=== PATIENT | male | born 1935 | race African-American/Black ===

== ENCOUNTER 2020-04-30 08:45 | Inpatient (IN) | payer MEDICARE, OTHER ==
[~2020-04-30] VITALS: Ht 167.6 cm; Wt 56.6 kg
[2020-04-30] VITALS (10 sets, daily range): BP systolic 118–157; BP diastolic 59–89
[~2020-04-30 08:45] MED LIST: AMLO-258 PO; ASPI-1111 PO; ATOR40TA28 PO; FAMO20 PO; FLUT16H NASAL; FOLI1TAB35 PO; SEVE800T17 PO; TAMS-13 PO
[2020-04-30] MEDS ORDERED: PANTOPRAZOLE SODIUM 40 MG/VIAL IVP ONE (09:15)
[2020-04-30 09:29] LABS: BASOPHILS % (AUTO) 0.5 % (0.0-2.0); EOSINOPHILS % (AUTO) 0.8 % (1.0-6.0); LYMPHOCYTES # (AUTO) 0.6 K/uL (1.0-4.8); LYMPHOCYTES % (AUTO) 6.9 % (22.0-44.0); MEAN CORPUSCULAR HEMOGLOBIN 33.2 pg (26.0-34.0); MEAN CORPUSCULAR HGB CONC 36.9 G/dL (31.0-37.0); MEAN CORPUSCULAR VOLUME 90 fL (80-100); MONOCYTES # (AUTO) 0.4 K/uL (0.1-1.0); MONOCYTES % (AUTO) 4.6 % (2.0-9.0); NEUTROPHILS # (AUTO) 7.4 K/uL (1.8-7.7); PLATELET COUNT (AUTO) 229 K/uL (150-450); RED BLOOD CELL COUNT(AUTO) 1.83 MIL/uL (4.50-5.90); RED CELL DISTRIBUTION WIDTH 14.5 % (11.5-14.5)
[2020-04-30 09:31] LABS: CALCIUM, TOTAL 8.9 mg/dL (8.8-10.5); CREATININE 8.17 mg/dL (0.60-1.30); POTASSIUM 4.2 mmol/L (3.5-5.1)
[2020-04-30 09:37] LABS: ALBUMIN 2.9 g/dL (3.4-5.0); BILIRUBIN,TOTAL 0.5 mg/dL (0.1-1.0)
[2020-04-30 09:55] LABS: HEMATOCRIT 16.5 % (41-53); HEMOGLOBIN 6.1 g/dL (13.5-17.5); NEUTROPHILS % (AUTO) 87.2 % (40.0-70.0)
[2020-04-30 10:02] LABS: INR 1.1 (0.9-1.1); PROTHROMBIN TIME 11.6 SEC (9.4-11.6)
[2020-04-30] MEDS ORDERED: ONDANSETRON HCL 4 MG/2 ML VIAL IVP PRN (10:30)
[2020-04-30] MEDS ORDERED: 0.9% SODIUM CHLORIDE 10 ML SYRINGE IVP PRN (10:30)
[2020-04-30] MEDS ORDERED: PEG 3350/NA SULF,BICARB,CL/KCL 4000 ML SOLUTION PO ONE (10:45)
[2020-04-30 12:51] LABS: APPEARANCE,URINE TURBID (CLEAR); BILIRUBIN,URINE NEGATIVE (NEGATIVE); GLUCOSE, URINE (UA) 100 mg/dL (NEGATIVE); KETONES,URINE NEGATIVE (NEGATIVE); LEUKOCYTE ESTERASE ,URINE LARGE (NEGATIVE); NITRATE,URINE NEGATIVE (NEGATIVE); OCCULT BLOOD,URINE MODERATE (NEGATIVE); PROTEIN,URINE SEE CONFIRM (NEGATIVE); UROBILINOGEN,URINE 0.2 mg/dL (<=1.0)
[2020-04-30 13:11] LABS: SULFOSALICYLIC ACID,URINE 3+ (Negative)
[2020-04-30 13:12] LABS: BACTERIA,URINE Few /HPF (None Seen); RBC,URINE 0-2 /HPF (0-2); SQUAMOUS EPITHELIAL CELL,UR Few /LPF (None Seen)
[2020-04-30 16:21] LABS: BASOPHILS % (AUTO) 0.6 % (0.0-2.0); EOSINOPHILS % (AUTO) 0.3 % (1.0-6.0); HEMATOCRIT 21.4 % (41-53); HEMOGLOBIN 7.1 g/dL (13.5-17.5); LYMPHOCYTES # (AUTO) 0.8 K/uL (1.0-4.8); LYMPHOCYTES % (AUTO) 7.1 % (22.0-44.0); MEAN CORPUSCULAR HEMOGLOBIN 30.3 pg (26.0-34.0); MEAN CORPUSCULAR HGB CONC 33.3 G/dL (31.0-37.0); MEAN CORPUSCULAR VOLUME 91 fL (80-100); MONOCYTES # (AUTO) 0.6 K/uL (0.1-1.0); MONOCYTES % (AUTO) 5.9 % (2.0-9.0); NEUTROPHILS # (AUTO) 9.2 K/uL (1.8-7.7); PLATELET COUNT (AUTO) 211 K/uL (150-450); RED BLOOD CELL COUNT(AUTO) 2.36 MIL/uL (4.50-5.90); RED CELL DISTRIBUTION WIDTH 14.4 % (11.5-14.5)
[2020-04-30 16:23] LABS: NEUTROPHILS % (AUTO) 86.1 % (40.0-70.0)
[2020-04-30] MEDS: ATORVASTATIN CALCIUM 20 MG TABLET PO SCH (21:00)
[2020-05-01] VITALS (18 sets, daily range): BP systolic 133–157; BP diastolic 67–85
[2020-05-01] MEDS ORDERED: INFLUENZA VIRUS VACCINE QVS 2020-21 (6MO+)/PF 60 MCG/0.5 ML SYRINGE IM ONE (03:15)
[2020-05-01 06:48] LABS: ALBUMIN 2.7 g/dL (3.4-5.0); BILIRUBIN,TOTAL 0.6 mg/dL (0.1-1.0); CALCIUM, TOTAL 8.5 mg/dL (8.8-10.5); CREATININE 8.59 mg/dL (0.60-1.30); POTASSIUM 3.8 mmol/L (3.5-5.1); TOTAL PROTEIN, SERUM 5.5 g/dL (6.4-8.2)
[2020-05-01 07:12] LABS: BASOPHILS % (AUTO) 1.1 % (0.0-2.0); EOSINOPHILS % (AUTO) 1.7 % (1.0-6.0); LYMPHOCYTES # (AUTO) 1.1 K/uL (1.0-4.8); LYMPHOCYTES % (AUTO) 13.8 % (22.0-44.0); MEAN CORPUSCULAR HEMOGLOBIN 30.7 pg (26.0-34.0); MEAN CORPUSCULAR HGB CONC 34.3 G/dL (31.0-37.0); MEAN CORPUSCULAR VOLUME 90 fL (80-100); MONOCYTES # (AUTO) 0.5 K/uL (0.1-1.0); MONOCYTES % (AUTO) 6.1 % (2.0-9.0); NEUTROPHILS % (AUTO) 77.3 % (40.0-70.0); PLATELET COUNT (AUTO) 202 K/uL (150-450); RED BLOOD CELL COUNT(AUTO) 1.84 MIL/uL (4.50-5.90); RED CELL DISTRIBUTION WIDTH 14.4 % (11.5-14.5)
[2020-05-01 07:22] LABS: COVID AG,FIA SOURCE NASOPHARYNGEAL
[2020-05-01 07:34] LABS: HEMATOCRIT 16.4 % (41-53); HEMOGLOBIN 5.6 g/dL (13.5-17.5)
[2020-05-01] MEDS: FLUTICASONE PROPIONATE 50 MCG/SPRAY 16 GM NASAL SPRAY NASAL SCH (09:04)
[2020-05-01] MEDS: SEVELAMER CARBONATE 800 MG POWDER PACKET PO SCH (09:07)
[2020-05-01] MEDS ORDERED: EPOETIN ALFA 10,000 UNITS/ML VIAL SQ SCH (11:20)
[2020-05-01] MEDS ORDERED: SODIUM CHLORIDE 0.9% 1,000 ML ONE (13:15)
[2020-05-01 14:04] LABS: BASOPHILS % (AUTO) 1.2 % (0.0-2.0); EOSINOPHILS % (AUTO) 1.8 % (1.0-6.0); LYMPHOCYTES # (AUTO) 0.9 K/uL (1.0-4.8); LYMPHOCYTES % (AUTO) 12.9 % (22.0-44.0); MEAN CORPUSCULAR HEMOGLOBIN 31.3 pg (26.0-34.0); MEAN CORPUSCULAR HGB CONC 34.9 G/dL (31.0-37.0); MEAN CORPUSCULAR VOLUME 90 fL (80-100); MONOCYTES # (AUTO) 0.5 K/uL (0.1-1.0); MONOCYTES % (AUTO) 6.7 % (2.0-9.0); NEUTROPHILS # (AUTO) 5.5 K/uL (1.8-7.7); NEUTROPHILS % (AUTO) 77.4 % (40.0-70.0); PLATELET COUNT (AUTO) 187 K/uL (150-450); RED BLOOD CELL COUNT(AUTO) 1.77 MIL/uL (4.50-5.90); RED CELL DISTRIBUTION WIDTH 14.1 % (11.5-14.5)
[2020-05-01 14:18] LABS: HEMOGLOBIN 5.5 g/dL (13.5-17.5)
[2020-05-01 14:19] LABS: HEMATOCRIT 15.9 % (41-53)
[2020-05-01] MEDS: SOLIFENACIN SUCCINATE 5 MG TABLET PO SCH (16:51)
[2020-05-01] MEDS: VITAMIN B COMP/VIT C/FOLIC ACID CAPSULE PO SCH (16:51)
[2020-05-01] MEDS: FAMOTIDINE 20 MG TABLET PO SCH (16:51)
[2020-05-01] MEDS: TAMSULOSIN HCL 0.4 MG CAPSULE PO SCH (16:51)
[2020-05-01] MEDS ORDERED: LIDOCAINE/PF 1% 2 ML VIAL IM ONE (17:29)
[2020-05-01] MEDS ORDERED: SODIUM CHLORIDE 0.9% 500 ML IV ONE (17:38)
[2020-05-01] MEDS: ATORVASTATIN CALCIUM 20 MG TABLET PO SCH (20:25)
[2020-05-01 23:26] LABS: BASOPHILS % (AUTO) 1.1 % (0.0-2.0); EOSINOPHILS % (AUTO) 3.9 % (1.0-6.0); HEMATOCRIT 23.3 % (41-53); HEMOGLOBIN 7.8 g/dL (13.5-17.5); LYMPHOCYTES # (AUTO) 0.9 K/uL (1.0-4.8); LYMPHOCYTES % (AUTO) 13.3 % (22.0-44.0); MEAN CORPUSCULAR HEMOGLOBIN 29.3 pg (26.0-34.0); MEAN CORPUSCULAR HGB CONC 33.3 G/dL (31.0-37.0); MEAN CORPUSCULAR VOLUME 88 fL (80-100); MONOCYTES # (AUTO) 0.5 K/uL (0.1-1.0); MONOCYTES % (AUTO) 7.8 % (2.0-9.0); NEUTROPHILS # (AUTO) 4.9 K/uL (1.8-7.7); NEUTROPHILS % (AUTO) 73.9 % (40.0-70.0); PLATELET COUNT (AUTO) 181 K/uL (150-450); RED BLOOD CELL COUNT(AUTO) 2.65 MIL/uL (4.50-5.90)
[2020-05-02] VITALS (13 sets, daily range): BP systolic 127–150; BP diastolic 59–78
[2020-05-02 05:52] LABS: BASOPHILS % (AUTO) 1.2 % (0.0-2.0); EOSINOPHILS % (AUTO) 2.8 % (1.0-6.0); HEMATOCRIT 21.8 % (41-53); HEMOGLOBIN 7.6 g/dL (13.5-17.5); LYMPHOCYTES # (AUTO) 0.7 K/uL (1.0-4.8); LYMPHOCYTES % (AUTO) 10.9 % (22.0-44.0); MEAN CORPUSCULAR HEMOGLOBIN 30.3 pg (26.0-34.0); MEAN CORPUSCULAR HGB CONC 34.6 G/dL (31.0-37.0); MEAN CORPUSCULAR VOLUME 87 fL (80-100); MONOCYTES # (AUTO) 0.6 K/uL (0.1-1.0); MONOCYTES % (AUTO) 8.8 % (2.0-9.0); NEUTROPHILS # (AUTO) 5.1 K/uL (1.8-7.7); NEUTROPHILS % (AUTO) 76.3 % (40.0-70.0); PLATELET COUNT (AUTO) 179 K/uL (150-450); RED CELL DISTRIBUTION WIDTH 14.8 % (11.5-14.5)
[2020-05-02] MEDS: SEVELAMER CARBONATE 800 MG POWDER PACKET PO SCH (07:41)
[2020-05-02] MEDS: FAMOTIDINE 20 MG TABLET PO SCH (08:04)
[2020-05-02] MEDS: TAMSULOSIN HCL 0.4 MG CAPSULE PO SCH (08:04)
[2020-05-02] MEDS: SOLIFENACIN SUCCINATE 5 MG TABLET PO SCH (08:04)
[2020-05-02] MEDS: VITAMIN B COMP/VIT C/FOLIC ACID CAPSULE PO SCH (08:04)
[2020-05-02] MEDS: FLUTICASONE PROPIONATE 50 MCG/SPRAY 16 GM NASAL SPRAY NASAL SCH (08:04)
[2020-05-02] MEDS ORDERED: SODIUM CHLORIDE 0.9% 500 ML IV ONE (11:53)
[2020-05-02 13:05] LABS: BASOPHILS % (AUTO) 1.1 % (0.0-2.0); EOSINOPHILS % (AUTO) 3.2 % (1.0-6.0); HEMATOCRIT 24.1 % (41-53); HEMOGLOBIN 8.1 g/dL (13.5-17.5); LYMPHOCYTES # (AUTO) 0.9 K/uL (1.0-4.8); LYMPHOCYTES % (AUTO) 13.7 % (22.0-44.0); MEAN CORPUSCULAR HEMOGLOBIN 29.8 pg (26.0-34.0); MEAN CORPUSCULAR HGB CONC 33.6 G/dL (31.0-37.0); MEAN CORPUSCULAR VOLUME 89 fL (80-100); MONOCYTES # (AUTO) 0.5 K/uL (0.1-1.0); MONOCYTES % (AUTO) 7.3 % (2.0-9.0); NEUTROPHILS # (AUTO) 4.9 K/uL (1.8-7.7); NEUTROPHILS % (AUTO) 74.7 % (40.0-70.0); PLATELET COUNT (AUTO) 206 K/uL (150-450); RED BLOOD CELL COUNT(AUTO) 2.73 MIL/uL (4.50-5.90); RED CELL DISTRIBUTION WIDTH 15.4 % (11.5-14.5)
[2020-05-02] MEDS ORDERED: ACETAMINOPHEN 325 MG TABLET PO PRN (14:45)
== END 2020-05-02 17:30 | disposition home or self-care (01) | DRG 919 ==
LOC: EMS 08:46 → INTOOBSV 14:45 → OBSVTOIN 14:45 → 5S 14:45
PROVIDERS: ADMIT Hospitalist; ATTEND Hospitalist
PROC: 30233N1 Transfusion of Nonautologous Red Blood Cells into Peripheral Vein, Percutaneous Approach (ICD-10-PCS; principal; 2020-04-30)
PROC: 5A1D70Z Performance of Urinary Filtration, Intermittent, Less than 6 Hours Per Day (ICD-10-PCS; 2020-05-01)
DX: K91.840 Postprocedural hemorrhage of a digestive system organ or structure following a digestive system procedure (principal); N18.6 End stage renal disease; D62 Acute posthemorrhagic anemia; E46 Unspecified protein-calorie malnutrition; I12.0 Hypertensive chronic kidney disease with stage 5 chronic kidney disease or end stage renal disease; Y83.8 Other surgical procedures as the cause of abnormal reaction of the patient, or of later complication, without mention of misadventure at the time of the procedure; I25.10 Atherosclerotic heart disease of native coronary artery without angina pectoris; Z20.828 Contact with and (suspected) exposure to other viral communicable diseases; Z79.899 Other long term (current) drug therapy; Z99.2 Dependence on renal dialysis; Z85.46 Personal history of malignant neoplasm of prostate; Z68.20 Body mass index [BMI] 20.0-20.9, adult; Y92.89 Other specified places as the place of occurrence of the external cause
CPT/HCPCS: 82271; 86850; 86900; 86901; 86923; 87081; 87086; 87340; 87426; 90686; 93005; 99291; C9113; J0885; J3490; J7030; J7040; P9016

== ENCOUNTER 2021-02-15 18:50 | Emergency (ER) | payer MEDICARE, OTHER ==
[~2021-02-15 18:50] MED LIST changes: -ASPI-1111 PO
== END 2021-02-15 18:58 | disposition left against medical advice (07) ==
LOC: EMS 18:50
DX: L08.9 Local infection of the skin and subcutaneous tissue, unspecified (principal); Z53.21 Procedure and treatment not carried out due to patient leaving prior to being seen by health care provider

== ENCOUNTER 2023-06-09 22:09 | Inpatient (IN) | payer MEDICARE, OTHER ==
[~2023-06-09] VITALS: Ht 170.2 cm; Wt 75.2 kg
[~2023-06-09 22:09] MED LIST changes: -AMLO-258 PO; +ASPI-1444 PO; +ATOR20TA65 PO; -ATOR40TA28 PO; +CEPH-558 PO; -FLUT16H NASAL; +METO25 PO; -TAMS-13 PO; +TAMS0.4C94 PO; +[UNRECOGNIZED DRUG - CODE] IV
[2023-06-09 23:32] LABS: BASOPHILS % (AUTO) 0.8 % (0.0-2.0); EOSINOPHILS % (AUTO) 1.5 % (1.0-6.0); HEMATOCRIT 29.8 % (41-53); LYMPHOCYTES # (AUTO) 0.6 K/uL (1.0-4.8); LYMPHOCYTES % (AUTO) 5.7 % (22.0-44.0); MEAN CORPUSCULAR HEMOGLOBIN 29.9 pg (26.0-34.0); MEAN CORPUSCULAR HGB CONC 33.5 G/dL (31.0-37.0); MEAN CORPUSCULAR VOLUME 89 fL (80-100); MONOCYTES # (AUTO) 0.9 K/uL (0.1-1.0); NEUTROPHILS # (AUTO) 9.4 K/uL (1.8-7.7); PLATELET COUNT (AUTO) 322 K/uL (150-450); RED BLOOD CELL COUNT(AUTO) 3.34 MIL/uL (4.50-5.90); RED CELL DISTRIBUTION WIDTH 16.1 % (11.5-14.5); WHITE BLOOD COUNT (AUTO) 11.2 K/uL (4.5-11.0)
[2023-06-09 23:42] LABS: CALCIUM, TOTAL 9.6 mg/dL (8.8-10.5); CREATININE 4.82 mg/dL (0.60-1.30); POTASSIUM 3.9 mmol/L (3.5-5.1)
[2023-06-09 23:50] LABS: ALBUMIN 3.1 g/dL (3.4-5.0); BILIRUBIN,TOTAL 0.4 mg/dL (0.1-1.0); TOTAL PROTEIN, SERUM 8.6 g/dL (6.4-8.2)
[2023-06-09 23:54] LABS: TROPONIN I-HIGH SENSITIVITY 465 ng/L (<76)
[2023-06-10 00:56] LABS: APPEARANCE,URINE TURBID (CLEAR); BILIRUBIN,URINE NEGATIVE (NEGATIVE); COLOR,URINE ORANGE (YELLOW); GLUCOSE, URINE (UA) NEGATIVE (NEGATIVE); KETONES,URINE NEGATIVE (NEGATIVE); LEUKOCYTE ESTERASE ,URINE LARGE (NEGATIVE); NITRATE,URINE NEGATIVE (NEGATIVE); OCCULT BLOOD,URINE MODERATE (NEGATIVE); PH,URINE 8.5 (5.0-8.0); PROTEIN,URINE 300-600,SEE CONFIRM mg/dL (NEGATIVE); SPECIFIC GRAVITIY, URINE 1.009 (1.003-1.030); UROBILINOGEN,URINE <=1.0 mg/dL (<=1.0)
[2023-06-10 00:57] LABS: SULFOSALICYLIC ACID,URINE 3+ (Negative)
[2023-06-10 00:58] LABS: BACTERIA,URINE Many /HPF (None Seen); SQUAMOUS EPITHELIAL CELL,UR None Seen /LPF (None Seen); WBC,URINE 51-100 /HPF (0-5)
[2023-06-10] MEDS ORDERED: CefTRIAXone 1 GM/DEXTROSE 50 ML IV ONE (01:30)
[2023-06-10] MEDS ORDERED: SODIUM CHLORIDE 0.9% 1,000 ML IV ONE (01:30)
[2023-06-10 01:48] LABS: COVID AG,FIA SOURCE NASAL SWAB
[2023-06-10] MEDS ORDERED: ONDANSETRON HCL 4 MG/2 ML VIAL IVP PRN ×2 (02:00→08:00)
[2023-06-10] MEDS ORDERED: 0.9% SODIUM CHLORIDE 10 ML SYRINGE IVP PRN (02:00)
[2023-06-10] MEDS ORDERED: ACETAMINOPHEN 325 MG TABLET PO PRN (02:00)
[2023-06-10 02:11] LABS: SARS-COV2 (COVID) ANTIGEN,FIA Negative (Negative)
[2023-06-10 02:41] LABS: TROPONIN I-HIGH SENSITIVITY 438 ng/L (<76)
[2023-06-10] MEDS ORDERED: BISACODYL 10 MG RECTAL RECTAL SUPPOSITORY PR PRN (08:00)
[2023-06-10 08:30] VITALS: BP 131/69; PULSE 69; RESP 18; TEMP 98.8
[2023-06-10] MEDS ORDERED: ATORVASTATIN CALCIUM 10 MG TABLET PO SCH (09:00)
[2023-06-10] MEDS: HEPARIN SODIUM,PORCINE 5,000 UNITS/ML VIAL SQ SCH ×2 (09:14→20:14)
[2023-06-10] MEDS: FAMOTIDINE 20 MG TABLET PO SCH (09:14)
[2023-06-10] MEDS: DOCUSATE SODIUM 100 MG CAPSULE PO SCH ×2 (09:14→20:13)
[2023-06-10] MEDS: ASPIRIN 81 MG CHEWABLE TABLET PO SCH (09:15)
[2023-06-10 09:47] LABS: TROPONIN I-HIGH SENSITIVITY 346 ng/L (<76)
[2023-06-10 11:29] VITALS: BP 144/67; PULSE 69; RESP 16; TEMP 97.8
[2023-06-10 14:55] LABS: TROPONIN I-HIGH SENSITIVITY 508 ng/L (<76)
[2023-06-10 15:26] VITALS: BP 136/85; PULSE 67; RESP 18; TEMP 98.4
[2023-06-10 19:31] VITALS: BP 123/64; PULSE 74; RESP 18; TEMP 99.2
[2023-06-10 23:44] VITALS: BP 132/75; PULSE 73; RESP 18; TEMP 98.9
[2023-06-10] MEDS ORDERED: SODIUM CHLORIDE 0.9% 500 ML IV ONE (23:58)
[2023-06-11] VITALS (14 sets, daily range): BP systolic 97–147; BP diastolic 55–81; PULSE 61–79; RESP 18–20; TEMP 96.6–98.7
[2023-06-11] MEDS: CefTRIAXone 1 GM/DEXTROSE 50 ML IV SCH (00:05)
[2023-06-11 07:05] LABS: BASOPHILS % (AUTO) 1.1 % (0.0-2.0); EOSINOPHILS % (AUTO) 2.5 % (1.0-6.0); HEMATOCRIT 27.2 % (41-53); HEMOGLOBIN 9.2 g/dL (13.5-17.5); LYMPHOCYTES # (AUTO) 1.1 K/uL (1.0-4.8); LYMPHOCYTES % (AUTO) 13.7 % (22.0-44.0); MEAN CORPUSCULAR HEMOGLOBIN 30.6 pg (26.0-34.0); MEAN CORPUSCULAR HGB CONC 33.9 G/dL (31.0-37.0); MEAN CORPUSCULAR VOLUME 90 fL (80-100); MONOCYTES # (AUTO) 0.8 K/uL (0.1-1.0); MONOCYTES % (AUTO) 10.4 % (2.0-9.0); NEUTROPHILS # (AUTO) 5.7 K/uL (1.8-7.7); NEUTROPHILS % (AUTO) 72.3 % (40.0-70.0); PLATELET COUNT (AUTO) 299 K/uL (150-450); RED BLOOD CELL COUNT(AUTO) 3.01 MIL/uL (4.50-5.90); RED CELL DISTRIBUTION WIDTH 15.7 % (11.5-14.5); WHITE BLOOD COUNT (AUTO) 7.9 K/uL (4.5-11.0)
[2023-06-11 07:19] LABS: ALBUMIN 2.7 g/dL (3.4-5.0); BILIRUBIN,TOTAL 0.4 mg/dL (0.1-1.0); CALCIUM, TOTAL 9.5 mg/dL (8.8-10.5); CREATININE 7.14 mg/dL (0.60-1.30); TOTAL PROTEIN, SERUM 7.6 g/dL (6.4-8.2)
[2023-06-11 07:35] LABS: TROPONIN I-HIGH SENSITIVITY 372 ng/L (<76)
[2023-06-11] MEDS: ASPIRIN 81 MG CHEWABLE TABLET PO SCH (08:22)
[2023-06-11] MEDS: FAMOTIDINE 20 MG TABLET PO SCH (08:22)
[2023-06-11] MEDS: METOPROLOL TARTRATE 25 MG TABLET PO SCH ×2 (08:22→20:05)
[2023-06-11] MEDS: DOCUSATE SODIUM 100 MG CAPSULE PO SCH ×2 (08:23→20:41)
[2023-06-11] MEDS: HEPARIN SODIUM,PORCINE 5,000 UNITS/ML VIAL SQ SCH ×2 (08:23→20:41)
[2023-06-11 08:35] LABS: MAGNESIUM 2.3 mg/dL (1.80-2.40)
[2023-06-11] MEDS: ACETAMINOPHEN 325 MG TABLET PO PRN (08:41)
[2023-06-11 11:45] LABS: INR 1.1 (0.9-1.1); PROTHROMBIN TIME 11.4 SEC (9.4-11.6)
[2023-06-11] MEDS: SEVELAMER CARBONATE 800 MG TABLET PO SCH ×2 (13:29→20:05)
[2023-06-11] MEDS ORDERED: SODIUM CHLORIDE 0.9% 2,000 ML ONE (15:40)
[2023-06-11] MEDS ORDERED: HEPARIN SODIUM,PORCINE 1,000 UNITS/ML VIAL IVCATH ONE ×2 (19:45)
[2023-06-12] VITALS (11 sets, daily range): BP systolic 110–128; BP diastolic 65–76; PULSE 62–95; RESP 16–19; TEMP 97.7–98.8
[2023-06-12] MEDS: CefTRIAXone 1 GM/DEXTROSE 50 ML IV SCH (00:06)
[2023-06-12] MEDS ORDERED: NITROGLYCERIN 50 MG/D5% WATER 250 ML ONE (06:47)
[2023-06-12] MEDS ORDERED: HEPARIN SODIUM 1000 UNITS/NS 1,000 ML ONE (06:47)
[2023-06-12] MEDS ORDERED: VERAPAMIL HCL 2.5 MG/ML 2 ML VIAL ONE (06:47)
[2023-06-12] MEDS ORDERED: SODIUM BICARBONATE 50 MEQ/50 ML VIAL ONE (06:47)
[2023-06-12] MEDS ORDERED: LIDOCAINE/PF 1% 30 ML VIAL ONE (06:47)
[2023-06-12] MEDS ORDERED: IOHEXOL 300 MG/ML 100 ML VIAL ONE (06:47)
[2023-06-12 07:01] LABS: BASOPHILS % (AUTO) 1.2 % (0.0-2.0); EOSINOPHILS % (AUTO) 2.3 % (1.0-6.0); HEMATOCRIT 23.8 % (41-53); HEMOGLOBIN 8.4 g/dL (13.5-17.5); LYMPHOCYTES # (AUTO) 0.8 K/uL (1.0-4.8); LYMPHOCYTES % (AUTO) 12.8 % (22.0-44.0); MEAN CORPUSCULAR HEMOGLOBIN 31.4 pg (26.0-34.0); MEAN CORPUSCULAR HGB CONC 35.2 G/dL (31.0-37.0); MEAN CORPUSCULAR VOLUME 89 fL (80-100); MONOCYTES # (AUTO) 0.7 K/uL (0.1-1.0); MONOCYTES % (AUTO) 10.6 % (2.0-9.0); NEUTROPHILS # (AUTO) 4.8 K/uL (1.8-7.7); NEUTROPHILS % (AUTO) 73.1 % (40.0-70.0); PLATELET COUNT (AUTO) 280 K/uL (150-450); RED BLOOD CELL COUNT(AUTO) 2.67 MIL/uL (4.50-5.90); RED CELL DISTRIBUTION WIDTH 15.7 % (11.5-14.5); WHITE BLOOD COUNT (AUTO) 6.6 K/uL (4.5-11.0)
[2023-06-12 07:15] LABS: CALCIUM, TOTAL 8.7 mg/dL (8.8-10.5); CREATININE 4.24 mg/dL (0.60-1.30)
[2023-06-12] MEDS ORDERED: MIDAZOLAM HCL 2 MG/2 ML VIAL ONE (07:34)
[2023-06-12] MEDS ORDERED: FentaNYL CITRATE PF 100 MCG/2 ML VIAL ONE (07:34)
[2023-06-12] MEDS ORDERED: HEPARIN SODIUM,PORCINE 1,000 UNITS/ML 10 ML VIAL IARTER ONE (07:45)
[2023-06-12] MEDS ORDERED: VERAPAMIL HCL 2.5 MG/ML 2 ML VIAL IARTER ONE (07:45)
[2023-06-12] MEDS ORDERED: SODIUM CHLORIDE 0.9% 500 ML IV ONE (07:45)
[2023-06-12] MEDS ORDERED: LIDOCAINE 1% 30 ML/SOD BICARB 8.4% 4 ML SQ ONE (07:45)
[2023-06-12] MEDS ORDERED: IOHEXOL 300 MG/ML 100 ML VIAL ICOR ONE (07:45)
[2023-06-12] MEDS ORDERED: NITROGLYCERIN/D5W 50 MG/250 ML IV BOTTLE IARTER ONE (07:45)
[2023-06-12] MEDS: HEPARIN SODIUM 2,000 UNITS in HEPARIN SODIUM 1000 UNITS/NS 1,000 ML IARTER ONE ×2 (07:54→07:59)
[2023-06-12] MEDS ORDERED: FentaNYL CITRATE PF 100 MCG/2 ML VIAL IVP ONE (08:00)
[2023-06-12] MEDS: DOCUSATE SODIUM 100 MG CAPSULE PO SCH ×3 (09:00→21:21)
[2023-06-12] MEDS ORDERED: ACETAMINOPHEN 650 MG RECTAL SUPPOSITORY PR PRN (12:00)
[2023-06-12] MEDS: FAMOTIDINE 20 MG TABLET PO SCH ×2 (12:00→16:25)
[2023-06-12] MEDS ORDERED: ACETAMINOPHEN 500 MG TABLET PO PRN (12:00)
[2023-06-12] MEDS: SEVELAMER CARBONATE 800 MG TABLET PO SCH ×3 (12:00→18:18)
[2023-06-12] MEDS: ASPIRIN 81 MG CHEWABLE TABLET PO SCH (12:01)
[2023-06-12] MEDS: METOPROLOL TARTRATE 25 MG TABLET PO SCH ×2 (16:25→21:21)
[2023-06-12] MEDS: HEPARIN SODIUM,PORCINE 5,000 UNITS/ML VIAL SQ SCH ×2 (16:26→21:21)
[2023-06-12] MEDS: ACETAMINOPHEN 325 MG TABLET PO PRN (23:24)
[2023-06-13] VITALS (12 sets, daily range): BP systolic 105–156; BP diastolic 42–105; PULSE 53–87; RESP 16–19; TEMP 97.7–98.7
[2023-06-13] MEDS: CefTRIAXone 1 GM/DEXTROSE 50 ML IV SCH (01:40)
[2023-06-13 07:05] LABS: BASOPHILS % (AUTO) 1.2 % (0.0-2.0); EOSINOPHILS % (AUTO) 3.8 % (1.0-6.0); HEMATOCRIT 23.1 % (41-53); LYMPHOCYTES # (AUTO) 0.9 K/uL (1.0-4.8); LYMPHOCYTES % (AUTO) 15.4 % (22.0-44.0); MEAN CORPUSCULAR HEMOGLOBIN 31.1 pg (26.0-34.0); MEAN CORPUSCULAR HGB CONC 34.6 G/dL (31.0-37.0); MEAN CORPUSCULAR VOLUME 90 fL (80-100); MONOCYTES # (AUTO) 0.6 K/uL (0.1-1.0); MONOCYTES % (AUTO) 11.4 % (2.0-9.0); NEUTROPHILS # (AUTO) 3.8 K/uL (1.8-7.7); NEUTROPHILS % (AUTO) 68.2 % (40.0-70.0); PLATELET COUNT (AUTO) 276 K/uL (150-450); RED BLOOD CELL COUNT(AUTO) 2.57 MIL/uL (4.50-5.90); RED CELL DISTRIBUTION WIDTH 15.8 % (11.5-14.5); WHITE BLOOD COUNT (AUTO) 5.7 K/uL (4.5-11.0)
[2023-06-13 07:20] LABS: CALCIUM, TOTAL 9.3 mg/dL (8.8-10.5); CREATININE 6.16 mg/dL (0.60-1.30); POTASSIUM 4.2 mmol/L (3.5-5.1)
[2023-06-13] MEDS: DOCUSATE SODIUM 100 MG CAPSULE PO SCH (08:50)
[2023-06-13] MEDS: SEVELAMER CARBONATE 800 MG TABLET PO SCH ×2 (08:51→13:13)
[2023-06-13] MEDS: METOPROLOL TARTRATE 25 MG TABLET PO SCH (08:51)
[2023-06-13] MEDS: HEPARIN SODIUM,PORCINE 5,000 UNITS/ML VIAL SQ SCH (08:52)
[2023-06-13] MEDS: ASPIRIN 81 MG CHEWABLE TABLET PO SCH (08:55)
[2023-06-13] MEDS ORDERED: SODIUM CHLORIDE 0.9% 2,000 ML ONE (08:56)
[2023-06-13] MEDS ORDERED: EPOETIN ALFA 10,000 UNITS/ML VIAL SQ SCH (09:00)
[2023-06-13] MEDS ORDERED: HEPARIN SODIUM,PORCINE 1,000 UNITS/ML VIAL IVP ONE ×2 (12:00)
[2023-06-13] MEDS ORDERED: CEFD300C18 PO (12:19)
== END 2023-06-13 14:30 | disposition home or self-care (01) | DRG 286 ==
LOC: EMS 22:12 → AHU 06-10 02:08 → 5S 06-10 06:37
PROVIDERS: ADMIT Internal Medicine; ATTEND Internal Medicine
PROC: 5A1D70Z Performance of Urinary Filtration, Intermittent, Less than 6 Hours Per Day (ICD-10-PCS; 2023-06-11)
PROC: 4A023N7 Measurement of Cardiac Sampling and Pressure, Left Heart, Percutaneous Approach (ICD-10-PCS; principal; 2023-06-12)
PROC: B2111ZZ Fluoroscopy of Multiple Coronary Arteries using Low Osmolar Contrast (ICD-10-PCS; 2023-06-12)
PROC: 5A1D70Z Performance of Urinary Filtration, Intermittent, Less than 6 Hours Per Day (ICD-10-PCS; 2023-06-13)
DX: I25.10 Atherosclerotic heart disease of native coronary artery without angina pectoris (principal); E43 Unspecified severe protein-calorie malnutrition; N18.6 End stage renal disease; I12.0 Hypertensive chronic kidney disease with stage 5 chronic kidney disease or end stage renal disease; N39.0 Urinary tract infection, site not specified; I47.20 Ventricular tachycardia, unspecified; R65.10 Systemic inflammatory response syndrome (SIRS) of non-infectious origin without acute organ dysfunction; I95.9 Hypotension, unspecified; Z20.822 Contact with and (suspected) exposure to COVID-19; D63.1 Anemia in chronic kidney disease; I35.1 Nonrheumatic aortic (valve) insufficiency; N13.9 Obstructive and reflux uropathy, unspecified; I25.2 Old myocardial infarction; Z79.82 Long term (current) use of aspirin; Z99.2 Dependence on renal dialysis; Z79.899 Other long term (current) drug therapy; Z95.5 Presence of coronary angioplasty implant and graft; Z68.26 Body mass index [BMI] 26.0-26.9, adult; Z85.46 Personal history of malignant neoplasm of prostate; Z83.3 Family history of diabetes mellitus; Z82.49 Family history of ischemic heart disease and other diseases of the circulatory system
CPT/HCPCS: 70450; 71045; 80048; 80053; 81001; 81002; 82550; 83735; 83880; 84484; 85025; 85610; 85730; 87086; 87186; 87340; 90935; 93005; 93306; 97116; 97163; 99291; J0696; J0885; J1644; J2250; J3010; J3490; J7030; J7040; Q9967; 36415-L1; 36415-TC; Z7610